=== PATIENT | female | born 1980 | race Caucasian/White ===

== ENCOUNTER 2017-05-13 20:57 | Outpatient (CLI) | payer BC ==
[~2017-05-13 20:57] MED LIST: ESCT10T PO; NORG1TAB PO; PNT40TEC PO; PRD20T PO; TPR100T PO
== END 2017-05-14 05:58 | disposition home or self-care (01) ==
LOC: SLEEP 20:57
PROVIDERS: ATTEND Nurse Practitioner Family
DX: G47.10 Hypersomnia, unspecified (principal); R06.83 Snoring; I10 Essential (primary) hypertension
CPT/HCPCS: 95810

== ENCOUNTER → 2018-10-14 | Outpatient (CLI) | payer BC ==
[2018-10-14 16:50] LABS: BASOPHILS % (AUTO) 0 % (0-10); EOSINOPHILS # (AUTO) 0.2 10^3/uL (0.0-0.3); EOSINOPHILS % (AUTO) 2 % (0-10); HEMATOCRIT 43 % (35-52); HEMOGLOBIN 14.1 G/DL (11.5-16.0); LYMPHOCYTES # (AUTO) 2.3 X 10^3 (1.0-4.0); LYMPHOCYTES % (AUTO) 21 % (12-44); MEAN CORPUSCULAR HEMOGLOBIN 28 PG (25-34); MEAN CORPUSCULAR HGB CONC 33 G/DL (32-36); MEAN CORPUSCULAR VOLUME 83 FL (80-99); MEAN PLATELET VOLUME 10.9 FL (7.4-10.4); MONOCYTES # (AUTO) 0.8 X 10^3 (0.0-1.0); MONOCYTES % (AUTO) 7 % (0-12); NEUTROPHILS # (AUTO) 7.8 X 10^3 (1.8-7.8); NEUTROPHILS % (AUTO) 70 % (42-75); PLATELET COUNT 334 10^3/uL (130-400); RED CELL DISTRIBUTION WIDTH 14.6 % (10.0-14.5); WHITE BLOOD COUNT 11.1 10^3/uL (4.3-11.0)
[2018-10-14 17:06] LABS: ALANINE AMINOTRANSFERASE 21 U/L (0-55); ALBUMIN 4.1 GM/DL (3.2-4.5); ALKALINE PHOSPHATASE 77 U/L (40-136); BILIRUBIN,TOTAL 0.3 MG/DL (0.1-1.0); BUN/CREATININE RATIO 14; CALCIUM 9.5 MG/DL (8.5-10.1); CARBON DIOXIDE 22 MMOL/L (21-32); CHLORIDE 109 MMOL/L (98-107); CREATININE SERUM 0.72 MG/DL (0.60-1.30); GFR ESTIMATED > 60; GLUCOSE 88 MG/DL (70-105); POTASSIUM 3.9 MMOL/L (3.6-5.0); SODIUM 139 MMOL/L (135-145); TOTAL PROTEIN 7.1 GM/DL (6.4-8.2)
[2018-10-14 17:26] LABS: FREE T4 (FREE THYROXINE) 1.04 NG/DL (0.70-1.48)
== END ==
LOC: CARD 16:15
PROVIDERS: ATTEND Nurse Practitioner Family
DX: R07.9 Chest pain, unspecified (principal); R06.00 Dyspnea, unspecified; R00.2 Palpitations
CPT/HCPCS: 36415; 80053; 84439; 84443; 84484; 85025

== ENCOUNTER → 2019-06-17 | Outpatient (CLI) | payer BC ==
--- NOTE | 2019-06-17 16:52 | Diagnostic Imaging Report ---
CLINICAL INDICATION: Follow-up thyroid nodules. COMPARISONS: Ultrasound of the thyroid gland dated 11/07/2015. FINDINGS: THYROID NODULES: Stable 2 mm hypoechoic nodule involving the inferior portion of the right thyroid lobe. There is a 2 mm hypoechoic nodule involving the mid portion of the left thyroid lobe. This is new compared to the prior study. Patient previously had a 4 mm hypoechoic nodule involving the medial aspect of left thyroid gland which is not imaged on this exam and may have resolved. THYROID GLAND: Besides the thyroid nodules, the thyroid gland has normal size, shape and echogenicity. The right lobe measures 5.7 cm x 1.6 cm x 1.3 cm and the left lobe measures 4.3 cm x 1.1 cm x 1.5 cm in their three dimensions. ISTHMUS: The isthmus is unremarkable and measures 2 mm in thickness. IMPRESSION: 1: There is a stable 2 mm hypoechoic nodule in the right thyroid lobe and a new 2 mm hypoechoic nodule in the left thyroid lobe with benign characteristics. 2: Otherwise, thyroid gland is unremarkable. Dictated by: Dictated on workstation # [id number]
== END ==
LOC: RAD 16:06
PROVIDERS: ATTEND Nurse Practitioner Family
DX: E04.2 Nontoxic multinodular goiter (principal)
CPT/HCPCS: 76536

== ENCOUNTER → 2019-10-21 | Outpatient (CLI) | payer BC ==
--- NOTE | 2019-10-21 15:05 | Diagnostic Imaging Report ---
INDICATION: Dysfunctional uterine bleeding and left lower quadrant pain Transabdominal and transvaginal views are obtained. The uterus measured 8.4 x 4.4 x 4.9 cm. The uterus is mildly anteverted. Endometrium measured 4 mm in thickness. There is a small 5 x 4 x 2 mm cystic area in the endometrium. The right ovary measured 2.0 x 1.4 x 1.3 cm and appeared normal. The left ovary measured 3.2 x 1.7 x 1.9 cm and appeared normal. There is no free fluid. There is color flow to both ovaries. IMPRESSION: Normal-appearing ovaries bilaterally. No free fluid. The uterus appears unremarkable except for a 5 x 4 mm cystic area in the endometrium. This may represent an endometrial cyst but would consider a test to exclude the possibility of an early gestation. Dictated by: Dictated on workstation # [id number]
== END ==
LOC: RAD 12:57
PROVIDERS: ATTEND Surgery
DX: R10.32 Left lower quadrant pain (principal); N93.8 Other specified abnormal uterine and vaginal bleeding
CPT/HCPCS: 76830; 76856

== ENCOUNTER → 2020-01-24 | Outpatient (CLI) | payer BC ==
--- NOTE | 2020-01-24 11:24 | Diagnostic Imaging Report ---
INDICATION: Pain, chest tightness. The exam compared with radiograph 12/16/2010. FINDINGS: Heart size and configuration stable and unremarkable. No failure, effusion or pneumothorax. The lungs clear. IMPRESSION: Stable negative chest Dictated by: Dictated on workstation # [id number]
== END ==
LOC: RAD 09:53
PROVIDERS: ATTEND Nurse Practitioner Family
DX: R07.89 Other chest pain (principal)
CPT/HCPCS: 71046

== ENCOUNTER → 2020-02-21 | Day surgery (SDC) | payer BC ==
[~2020-02-21] VITALS: Ht 165 cm; Wt 102.0 kg
[~2020-02-21] MED LIST changes: +LIDOCAINE 1% INJ 20 ML 20 ML VIAL ONE
[2020-02-21 08:12] VITALS: BP 131/90
--- NOTE | 2020-02-21 10:23 | Cardiac Procedure Note-CS/ASA ---
Pre-Procedure Note Pre-Op Procedure Note H&P Reviewed The H&P was reviewed, patient examined and no changes noted. Date H&P Reviewed: Feb 21, 2020 Time H&P Reviewed: 10:05 Conscious Sedation Pre-Proced Time 10:05 ASA Score 2 For ASA 3 and 4: Consider anesthesia and medical clearance. Also, for patients with a history of failed moderate sedation consider anesthesia. Airway Lungs Heart ASA score ASA 1: a normal healthy patient ASA 2: a patient with a mild systemic disease (mid diabetes, controlled hypertension, obesity ASA 3: a patient with a severe systemic disease that limits activity (angina, COPD, prior Myocardial infarction) ASA 4: a patient with an incapacitating disease that is a constant threat to life (CHF, renal failure) ASA 5: a moribund patient not expected to survive 24 hrs. (ruptured aneurysm) ASA 6: a declared brain- patient whose organs are being harvested. For emergent operations, add the letter E after the classification Mallampati Classification Grade 2 Sedation Plan Analgesia, Amnesia, Plan communicated to team members, Discussed options with patient/fam, Discussed risks with patient/fam The patient is an appropriate candidate to undergo the planned procedure, sedation, and anesthesia. The patient immediately re-assessed prior to indication. MARIN MUNOZ MD FACP FAC CCDS Feb 21, 2020 10:23
--- NOTE | 2020-02-21 14:31 | OPERATIVE REPORT ---
DATE OF SERVICE: 02/21/2020 PREOPERATIVE DIAGNOSIS: Cryptogenic stroke: Suspected paroxysmal atrial fibrillation. POSTOPERATIVE DIAGNOSIS: Cryptogenic stroke: Suspected paroxysmal atrial fibrillation. PROCEDURE: Implantable loop recorder implantation. 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 Paroxysmal atrial fibrillation is suspected as a source of these microinfarcts. Implantable loop recorder implantation was carried out after having obtained an informed consent. DESCRIPTION OF PROCEDURE: [facility] The left prepectoral area was prepared and draped in usual sterile fashion. Lidocaine 1% was used for local anesthesia. We used the tools provided with the [employer]tronic Reveal LINQ device to make a subcutaneous pocket anterior to the left fourth intercostal space into which the device was placed. The serial number of the device is [id number]. The skin edges were closed using Dermabond and Steri-Strips. She tolerated the procedure well. Job ID: [id number] DocumentID: [id number] Dictated Date: 02/21/2020 10:09:56 Parts Delivery Driver Date: 02/21/2020 14:31:39 Dictated By: MARIN MUNOZ MD, MA, FACP, FACC,
== END | disposition home or self-care (01) ==
LOC: CATH 07:57
PROVIDERS: ATTEND Internal Medicine Cardiovascular Disease
DX: I63.9 Cerebral infarction, unspecified (principal); F41.9 Anxiety disorder, unspecified; Z79.82 Long term (current) use of aspirin; Z79.899 Other long term (current) drug therapy; Z87.891 Personal history of nicotine dependence
CPT/HCPCS: 33285; C1764

== ENCOUNTER → 2020-03-06 | Outpatient (CLI) | payer BC ==
[~2020-03-06] MED LIST changes: -LIDOCAINE 1% INJ 20 ML 20 ML VIAL ONE
== END ==
LOC: CARD 10:00
PROVIDERS: ATTEND Internal Medicine Cardiovascular Disease
DX: I63.89 Other cerebral infarction (principal); R07.89 Other chest pain; Z86.73 Personal history of transient ischemic attack (TIA), and cerebral infarction without residual deficits
CPT/HCPCS: 93306; 93351

== ENCOUNTER → 2021-05-17 | Outpatient (CLI) | payer BC ==
--- NOTE | 2021-05-17 11:02 | Diagnostic Imaging Report ---
PROCEDURE: Pelvic comp/transvaginal sonogram. TECHNIQUE: Complete transabdominal and transvaginal pelvic ultrasound was performed. In addition, limited pelvic Doppler was performed. INDICATION: Irregular menses. Uterus is anteverted measuring 8.5 x 5.0 x 4.7 cm. There is an approximately 4 mm endometrial cyst. Endometrium is 5 mm in thickness. There appears to be a fibroid in the mid left uterus approximately 2.5 cm in size. A right ovary measures 2.5 x 2.0 x 1.2 cm and the left ovary measures 3.0 x 2.6 x 1.3 cm. There is blood flow to both ovaries. Ovaries contain small follicles. No adnexal mass or free fluid is seen. IMPRESSION: 1. Uterine fibroid and tiny endometrial cyst. This study is otherwise unremarkable. Dictated by: Dictated on workstation # [id number]
== END ==
LOC: RAD 10:00
PROVIDERS: ATTEND Obstetrics & Gynecology
DX: D25.9 Leiomyoma of uterus, unspecified (principal)
CPT/HCPCS: 76830; 76856

== ENCOUNTER 2021-06-24 06:53 | Outpatient (CLI) | payer BC ==
[~2021-06-24] VITALS: Ht 165.1 cm; Wt 100.0 kg
[2021-06-24] MEDS ORDERED: NORG1TAB33 PO (15:28)
[2021-06-24] MEDS ORDERED: ESCI20TA39 PO (15:28)
[2021-06-24] MEDS ORDERED: GABA-486 PO (15:28)
[2021-06-24] MEDS ORDERED: TOPI15CA PO (15:28)
== END 2021-06-24 15:29 | disposition home or self-care (01) ==
LOC: PREOP 06:53
PROVIDERS: ATTEND Obstetrics & Gynecology
DX: Z01.818 Encounter for other preprocedural examination (principal)

== ENCOUNTER 2021-07-01 05:58 | Day surgery (SDC) | payer BC ==
[2021-07-01] VITALS (10 sets, daily range): BP systolic 121–154; BP diastolic 59–95
[~2021-07-01] VITALS: Ht 165.1 cm; Wt 100.0 kg
[~2021-07-01 05:58] MED LIST changes: +ESCI20TA39 PO; +GABA-486 PO; +NORG1TAB33 PO; +TOPI15CA PO
[2021-07-01] MEDS ORDERED: ceFAZolin 2 GM IV Premixed 50 ML IV ONE (06:45)
[2021-07-01] MEDS ORDERED: metroNIDAZOLE 500MG/100ML IVPB 100 ML IV ONE (06:45)
[2021-07-01] MEDS ORDERED: SEVOFLURANE (ULTANE) 15 ML INHAL SOLN ONE ×2 (06:48→06:51)
[2021-07-01] MEDS ORDERED: ONDANSETRON 4 MG/2 ML (SDV) Z0FRAN ONE (06:48)
[2021-07-01] MEDS ORDERED: proPOfol 200 MG/20 ML (DIPRIVAN) VIAL IV ONE (06:48)
[2021-07-01] MEDS ORDERED: LIDOCAINE PF 2% 5 ML (XYLOCAINE) VIAL ONE (06:48)
[2021-07-01] MEDS ORDERED: MIDAZOLAM 2 MG/2 ML (VERSED) VIAL ONE (06:49)
[2021-07-01] MEDS ORDERED: fentaNYL INJ 100 MCG/2 ML AMP ONE (06:49)
[2021-07-01] MEDS ORDERED: BUPIVACAINE 0.25% 30 ML (SENSORCAINE) VIAL ONE (06:56)
[2021-07-01 07:02] LABS: BASOPHILS # (AUTO) 0.1 10^3/uL (0.0-0.1); BASOPHILS % (AUTO) 0 % (0-10); EOSINOPHILS # (AUTO) 0.2 10^3/uL (0.0-0.3); EOSINOPHILS % (AUTO) 1 % (0-10); HEMATOCRIT 42 % (35-52); HEMOGLOBIN 13.9 g/dL (11.5-16.0); LYMPHOCYTES # (AUTO) 2.1 10^3/uL (1.0-4.0); LYMPHOCYTES % (AUTO) 17 % (12-44); MEAN CORPUSCULAR HEMOGLOBIN 27 pg (25-34); MEAN CORPUSCULAR HGB CONC 33 g/dL (32-36); MEAN CORPUSCULAR VOLUME 80 fL (80-99); MEAN PLATELET VOLUME 10.4 fL (9.0-12.2); MONOCYTES # (AUTO) 0.8 10^3/uL (0.0-1.0); MONOCYTES % (AUTO) 7 % (0-12); NEUTROPHILS # (AUTO) 9.3 10^3/uL (1.8-7.8); NEUTROPHILS % (AUTO) 75 % (42-75); PLATELET COUNT 304 10^3/uL (130-400); WHITE BLOOD COUNT 12.5 10^3/uL (4.3-11.0)
[2021-07-01] MEDS: LACTATED RINGERS 1,000 ML IV PRN ×2 (07:05→08:15)
--- NOTE | 2021-07-01 07:06 | Progress Note-Pre Operative ---
Pre-Operative Progress Note H&P Reviewed The H&P was reviewed, patient examined and no changes noted. Date Seen by Provider: Jul 01, 2021 Time Seen by Provider: 07:05 Date H&P Reviewed: Jul 01, 2021 Time H&P Reviewed: 07:05 Pre-Operative Diagnosis: AUB, Fibroid uterus IDA CAVAZOS DO Jul 01, 2021 07:06
--- NOTE | 2021-07-01 07:11 | Discharge Inst-Women's Service ---
Discharge Inst-Women's Serv Depart Medication/Instructions New, Converted or Re-Newed RX: Transmitted to Pharmacy Problems Reviewed?: Yes Consults/Follow Up Additional Follow Up: Yes Orders/Referrals Dr. Taylor/Stephanie in 7-10 days and in 8 weeks Activity Activity: Activity as Tolerated Driving Instructions: No Driving for 1 Week NO SMOKING: NO SMOKING Nothing Inside Vagina: No Douching, No Blanca, No Tampons Diet Discharge Diet: No Restrictions Symptoms to Report to : Bleeding Excessive, Pain Increased, Fever Over 101 Degrees F, Vaginal Bleeding Increase, Questions/Concerns For Any Problems or Questions: Contact Your Physician Skin/Wound Care Infection Signs and Symptoms: Increased Redness, Foul Odor of Wound, Increased Drainage, Skin Itchy or Has a Rash, Increased Swelling, Temperature Above 101 F Operative Area Clean and Dry: Keep Incision Clean/Dry Stitches/Chastity/Dermabond: Dermabond, Care of Stitches Bathing Instructions: IDA Partida DO Jul 01, 2021 07:11
[2021-07-01] MEDS ORDERED: HYDR-34 PO (07:12)
[2021-07-01] MEDS ORDERED: DOCU100C37 PO (07:12)
[2021-07-01] MEDS ORDERED: IBUP-844 PO (07:12)
[2021-07-01] MEDS ORDERED: HYDROcodone/APAP 7.5 MG/325 MG (LORTAB, LORCET PLUS) TABLET PO PRN (07:15)
[2021-07-01] MEDS ORDERED: ONDANSETRON 4 MG/2 ML (SDV) Z0FRAN IV PRN (07:15)
[2021-07-01] MEDS ORDERED: ZOLPIDEM 5 MG (AMBIEN) TAB PO PRN (07:15)
[2021-07-01] MEDS ORDERED: LACTATED RINGERS 1,000 ML IV SCH (07:15)
[2021-07-01] MEDS ORDERED: DOCUSATE SODIUM 100 MG (COLACE) CAP PO PRN (07:15)
[2021-07-01] MEDS ORDERED: NALOXONE 0.4 MG/ML 1 ML (NARCAN) VIAL IV PRN (07:15)
[2021-07-01] MEDS ORDERED: ANTACID SUSP 30 ML UDC (MYLANTA) PO PRN (07:15)
[2021-07-01] MEDS ORDERED: CHLORASEPTIC LOZENGE MM PRN (07:15)
[2021-07-01] MEDS ORDERED: SIMETHICONE 80 MG (MYLICON) CHEW PO PRN (07:15)
[2021-07-01] MEDS ORDERED: ROCURONIUM 50 MG/5 ML (ZEMURON) VIAL IV ONE (08:23)
[2021-07-01] MEDS ORDERED: NEOSTIGMINE 3 MG/3 ML VIAL ONE (08:28)
[2021-07-01] MEDS ORDERED: GLYCOPYRROLATE 0.2 MG/ML (ROBINUL) 2 ML VIAL ONE (08:28)
[2021-07-01] MEDS ORDERED: MEPERIDINE (DEMEROL) INJ 50 MG/ML IVP ONE (09:00)
[2021-07-01] MEDS ORDERED: ONDANSETRON 4 MG/2 ML (SDV) Z0FRAN IVP PRN (09:00)
[2021-07-01] MEDS ORDERED: fentaNYL INJ 100 MCG/2 ML AMP IVP ONE (09:00)
[2021-07-01] MEDS ORDERED: morphine INJ 10 MG/ML 1ML (SYR OR VIAL) IVP ONE (09:00)
[2021-07-01] MEDS ORDERED: morphine INJ 10 MG/ML 1ML (SYR OR VIAL) ONE (09:15)
[2021-07-01] MEDS ORDERED: KETOROLAC 30 MG/ML VIAL ONE (10:35)
[2021-07-01] MEDS: KETOROLAC 30 MG/ML VIAL IVP PRN ×2 (10:38→17:46)
--- NOTE | 2021-07-02 00:35 | OPERATIVE REPORT ---
DATE OF SERVICE: PREOPERATIVE DIAGNOSES: 1. A 40-year-old female with abnormal uterine bleeding. 2. Fibroid uterus. POSTOPERATIVE DIAGNOSES: 1. A 40-year-old female with abnormal uterine bleeding. 2. Fibroid uterus. PROCEDURE: Robotic-assisted total laparoscopic hysterectomy with bilateral salpingectomy. SURGEON: Yannick Taylor DO DRESS CAP MAKER: Stephanie Lay DNP, was necessary for manipulation and retraction throughout the procedure. ANESTHESIA: General endotracheal. ESTIMATED BLOOD LOSS: Minimal. URINE OUTPUT: 30 mL clear at the end of procedure. FLUIDS: 2000 mL lactated Ringer's solution. FINDINGS: Slightly bulky and hyperemic appearing uterus, bilateral normal appearing fallopian tubes and ovaries. SPECIMEN SENT: Uterus, bilateral fallopian tubes. INDICATIONS FOR PROCEDURE: This 40-year-old female was a consultation from local nurse practitioner, Dawna Plata for concerns with heavy abnormal uterine bleeding. She has tried more conservative measures in the past and wished to proceed with more definitive measures as she had completed childbearing. Risks of the procedure were discussed with the patient in detail including risk of bleeding, infection, damaging surrounding structures including, but not limited to bowel, bladder, ureter, kidneys, possible need for operation, postoperative complications that may occur, risk from anesthesia and even . After everything was discussed with the patient in detail, consent was obtained in the preoperative area and the patient was taken to the operating room. OPERATIVE REPORT IN DETAIL: Once in the operating room, general anesthesia was found to be adequate. She was placed in dorsal lithotomy position, prepped and draped in normal sterile fashion. Timeout was performed. A Bradford catheter was placed using sterile technique. A weighted speculum was inserted to the patient's vagina. Right angle retractor was used to visualize the cervix. An 0 Vicryl suture was then placed in the anterior lip of the cervix using my retraction point. I then gently sound the uterine cavity, depth was found to be approximately 10 cm. I placed a Maryjane uterine manipulator with an 8 cm manipulator tip and a 3.5 cm colpotomy ring. The manipulator tip was advanced to the uterus. The colpotomy ring was advanced around the vaginal fornix. I then removed all the other instruments from the patient's vagina, performed change of gloves, turned my attention to the abdomen where infraumbilically I infiltrated this area using 0.25% Marcaine. Prior to making the incision in the left upper quadrant, I placed a Veress needle subcostally at the midclavicular line until intraperitoneal placement was confirmed using a saline drop test. I proceeded with insufflation using CO2 gas and opening pressure of 6 mmHg was noted, proceeded to max pressure of 15 mmHg, at which point, I made an incision infraumbilically with a knife and directed a da Govind camera trocar through the incision until intraperitoneal placement was confirmed using da Govind laparoscope. A brief scan of the upper and lower abdominal anatomy appears to be grossly normal. The Veress was then removed. I then had the patient placed in steep Trendelenburg when I able to visualize all my pelvic anatomy as described in my findings above. I placed two lateral trocars, both 8 mm trocars approximately 10 cm lateral to my infraumbilical trocar. Both these trocars were placed under direct visualization of laparoscope. I then brought in the da Govind robot and docked in appropriate fashion placing the SynchroSeal device in left hand and monopolar niki in the right hand. I then performed the following dissection bilaterally. Starting at the uteroovarian ligament, I sealed and transected using the SynchroSeal device. I then created a window in the mesosalpinx and took this laterally down the mesosalpinx amputating the fallopian tube from its surrounding blood supply. I then grasped the round ligament, which I sealed and transected using the SynchroSeal. I then grasped the entire broad ligament, which I sealed and transected using the SynchroSeal device down to the level of the lower uterine segment, at which point I the anterior and posterior leaflets of the broad ligament, anterior leaflet was taken around the anterior vaginal fornix and posterior leaflet was taken around the posterior vaginal fornix. This allows me to skeletonize the uterine vessels laterally, which I sealed and transected using the SynchroSeal device. I then created a colpotomy at 12 o'clock position using monopolar niki and took this circumferentially around the vaginal fornix amputating the cervix away from the vagina. The entire specimen was then removed through the vagina. I then closed the lateral vaginal apices of the vaginal cuff using 2-0 Vicryl suture in a [id number] fashion colposuspending them to the uterosacral ligaments. I then closed the remainder of the vaginal cuff using 2-0 V-Loc in a running fashion, after which no active bleeding noted from any of my dissection planes. I then undocked the da Govind robot and proceeded with remainder of the case laparoscopically. I copiously irrigated the pelvis using normal saline. Once again, there was no active bleeding noted from any of my dissection planes. I placed Surgiflo hemostatic agent over all my planes of dissection. The patient was taken out of steep Trendelenburg where I removed the lateral trocars under direct visualization of the laparoscope. The infraumbilical trocars left in place to release insufflation and introduced 10 mL of 0.25% Marcaine into the peritoneal cavity for postoperative pain management. I then removed this trocar as well. I then reapproximated the skin using 4-0 Monocryl in interrupted subcuticular stitches. Dermabond was applied to the incision and sterile dressing was adhesed with Band-Aids. Bradford catheter was left in place. The patient tolerated the procedure well and sent to recovery area in stable condition. Lap and sponge counts were correct at the end of the procedure. Instrument counts correct as well. Two grams of Ancef, 500 mg of Flagyl were given preoperatively for infection prophylaxis. Job ID: [id number] DocumentID: [id number] Dictated Date: 07/01/2021 09:28:40 Paper Box Cutter Date: 07/01/2021 17:05:44 Dictated By: YANNICK TAYLOR DO
--- NOTE | 2021-07-02 09:44 | Anesthesia-General Post-Op ---
General Patient Condition Mental Status/LOC: Same as Preop Cardiovascular: Satisfactory Nausea/Vomiting: Absent Respiratory: Satisfactory Pain: Controlled Complications: Absent Post Op Complications Complications None Follow Up Care/Instructions Patient Instructions None needed. Anesthesia/Patient Condition Patient Condition Patient is already discharged to home but she was doing well, no complaints, stable vital signs, no apparent adverse anesthesia problems prior to her discharge per nursing staff. RACHEL MCCULLOUGH DO Jul 02, 2021 09:44
[2021-07-06] MEDS ORDERED: IBUPROFEN 600 MG (MOTRIN) TAB PO PRN (07:15)
--- NOTE | 2021-07-15 10:27 | History & Physical-Surgical ---
HPO-Surgical History of Present Illness Chief Complaint: Patient consulted for AUB. Diagnosis/Surgical Indication: AUB, Fibroid uterus Procedure: RATLH with BSO Date of Surgery: Jul 01, 2021 Allergies and Home Medications Allergies Coded Allergies: No Known Drug Allergies (Verified , 07/01/21) Patient Home Medication List Home Medication List Reviewed: Yes Docusate Sodium (Docusate Sodium) 100 Mg Capsule, 100 MG PO BID PRN for CONSTIPATION-1ST LINE Prescribed by: IDA CAVAZOS on 07/01/21 0712 Escitalopram Oxalate (Escitalopram Oxalate) 20 Mg Tablet, 20 MG PO HS, (Reported) Entered as Reported by: GLEN CHILDS on 06/24/21 1528 Gabapentin (Gabapentin) 100 Mg Capsule, 100 MG PO HS, (Reported) Entered as Reported by: GLEN CHILDS on 06/24/21 1528 Hydrocodone Bit/Acetaminophen (HYDROcodone/APAP 7.5/325 TAB) 1 Ea Tablet, 1-2 EA PO Q6HR PRN for PAIN-MODERATE (5-7) Prescribed by: IDA CAVAZOS on 07/01/21 0713 Ibuprofen (Ibu) 600 Mg Tablet, 600 MG PO Q6HR PRN for PAIN-MILD (1-4) Prescribed by: IDA CAVAZOS on 07/01/21 0712 Topiramate (Topiramate) 15 Mg Cap.sprink, 15 MG PO HS, (Reported) Entered as Reported by: GLEN CHILDS on 06/24/21 1528 Past Thuznlv-Plcvcd-Zcziga Hx Patient Social History Smoking Status: Former Smoker Former Smoker, Quit: Jun 24, 2014 Recent Hopitalizations: No Seasonal Allergies Seasonal Allergies: No Surgeries Yes (R CTR, bilat foot sx, neck fusion) Adenoidectomy, Gallbladder, Tonsillectomy Respiratory No Currently Using CPAP: No Currently Using BIPAP: No Cardiovascular No (LOOP recorder) Neurological Yes Headaches /Migraines Reproductive System Hx Reproductive Disorders: No Sexually Transmitted Disease: No Genitourinary No Gastrointestinal No Musculoskeletal No Endocrine History of Endocrine Disorders: No HEENT History of HEENT Disorders: No Cancer No Psychosocial History of Psychiatric Problem: No Integumentary History of Skin or Integumenta: No Blood Transfusions History of Blood Disorders: No Exam Vital Signs Capillary Refill : Less Than 3 Seconds General Appearance: Alert, Oriented X3 HEENT: Atraumatic Respiratory: Clear to Auscultation Cardiovascular: Regular Rate Abdominal: Normal Bowel Sounds Extremities: No Clubbing Skin: No Rashes Neuro: Normal Gait, Normal Speech Psych/Mental Status: Mental Status NL Assessment/Plan Assessment and Plan Diagnosis: Fibroid Uterus AUB Admission Diagnosis Observation Admission Status: Observation IDA CAVAZOS DO Jul 15, 2021 10:26
== END 2021-07-01 18:10 | disposition home or self-care (01) ==
LOC: SDC 05:58 → WS 09:05 → SDC 18:10
PROVIDERS: ATTEND Obstetrics & Gynecology
DX: D25.9 Leiomyoma of uterus, unspecified (principal); N80.0 Endometriosis of uterus; N93.9 Abnormal uterine and vaginal bleeding, unspecified; E66.9 Obesity, unspecified; G43.909 Migraine, unspecified, not intractable, without status migrainosus; Z87.891 Personal history of nicotine dependence; Z79.899 Other long term (current) drug therapy; Z68.37 Body mass index [BMI] 37.0-37.9, adult; Z79.891 Long term (current) use of opiate analgesic; Z90.89 Acquired absence of other organs
CPT/HCPCS: 36415; 84703; 85025; 86850; 86900; 86901; 87081; 88307; 94664

== ENCOUNTER → 2022-04-14 | Outpatient (CLI) | payer BC ==
[~2022-04-14] MED LIST changes: +DOCU100C37 PO; +HYDR-34 PO; +IBUP-844 PO
--- NOTE | 2022-04-14 10:16 | Diagnostic Imaging Report ---
PROCEDURE: US Thyroid. TECHNIQUE: Multiple real-time grayscale images were obtained of the thyroid in various projections. INDICATION: Follow-up thyroid nodules. COMPARISON: 06/17/2019. FINDINGS: Both thyroid lobes demonstrate smooth and homogenous background echotexture. Color flow Doppler demonstrates normal and symmetric vascularity bilaterally. The right lobe measures 4.6 cm in length, 1.2 cm AP, and 1.5 cm transverse. The left lobe measures 4.2 cm in length, 1.1 cm AP, and 1.8 cm transverse. The isthmus measures 0.3 cm. Tiny slightly hypoechoic nodule is seen in the inferior pole of the right lobe of the thyroid measuring 0.3 x 0.2 x 0.3 cm. A similar nodule is seen in the mid left lobe of the thyroid measuring 0.1 x 0.1 x 0.2 cm. No new suspicious nodules in the thyroid. IMPRESSION: 1. Stable tiny nodules in the thyroid. No new suspicious nodules. No continued follow-up is recommended regarding these nodules. Dictated by: Dictated on workstation # [id number]
== END ==
LOC: RAD 08:00
PROVIDERS: ATTEND Nurse Practitioner Family
DX: E04.9 Nontoxic goiter, unspecified (principal)
CPT/HCPCS: 76536

== ENCOUNTER → 2022-11-14 | Outpatient (CLI) | payer BC | LOC: CARD 11:42 | PROVIDERS: ATTEND Nurse Practitioner Family | DX: R07.9 Chest pain, unspecified (principal) | CPT/HCPCS: 93306 ==

== ENCOUNTER → 2022-12-05 | Outpatient (CLI) | payer BC ==
[~2022-12-05] VITALS: Ht 162 cm; Wt 84.0 kg
[~2022-12-05] MED LIST changes: +CATHETER FLUSH 10 ML SYR IVP PRN; +REGADENOSON 0.4 MG/5 ML SYR (LEXISCAN) IV ONE
[2022-12-05 08:48] VITALS: BP 120/85
== END ==
LOC: CARD 06:58
PROVIDERS: ATTEND Nurse Practitioner Family
DX: R07.9 Chest pain, unspecified (principal)
CPT/HCPCS: 78452; 93017; A9502